=== PATIENT | male | born 1990 | race African-American/Black ===

== ENCOUNTER 2016-05-30 09:36 | Emergency (ER) | payer BC ==
[~2016-05-30] VITALS: Ht 175.3 cm; Wt 99.0 kg
[~2016-05-30 09:36] MED LIST: IBUP800T23 PO
[2016-05-30 09:38] VITALS: BP 139/86; PULSE 68; RESP 20; TEMP 97.8; O2SAT 99
[2016-05-30] MEDS ORDERED: SODIUM CHLORIDE 0.9% FLUSH 5 ML FLUSH IVF PRN (10:15)
[2016-05-30] MEDS ORDERED: ZOFR4TAB3 SL (11:40)
--- NOTE | 2016-05-30 11:40 | PD ---
HPI Chief Complaint: Abdominal Pain Time Seen by Provider: 09:56 Travel History International Travel<30 days: No Contact w/Intl Traveler<30days: No Traveled to known affect area: No History of Present Illness HPI This is a 26-year-old man who presents to the emergency room claiming of right upper quadrant abdominal pain that started yesterday. Been constant and worsening since that time. Associated with 2 episodes of nausea and vomiting. No diarrhea. No fevers or chills. No history of similar previous problems. Doesn't really have indigestion problems. He doesn't take NSAIDs. He drinks a little bit of alcohol. He was drinking a little bit of alcohol yesterday. No history of abdominal surgeries. States he came back and the pain was worse overnight. History Past Medical History Medical History: Denies Significant Hx Tetanus Vaccination: Never Vaccinated Influenza Vaccination: No Social History Alcohol Use: Yes (occ) Tobacco Use: No Allergies-Medications (Allergen,Severity, Reaction): Coded Allergies: No Known Allergies (Verified , 05/30/16) Reported Meds & Prescriptions Reported Meds & Active Scripts Active Review of Systems Except as stated in HPI: all other systems reviewed are Neg Physical Exam Narrative GENERAL: Well-appearing 18-year-old man, no acute distress. SKIN: Warm and dry. HEAD: Atraumatic. Normocephalic. EYES: Pupils equal and round. No scleral icterus. No injection or drainage. ENT: No nasal bleeding or discharge. Mucous membranes pink and moist. NECK: Trachea midline. No JVD. CARDIOVASCULAR: Regular rate and rhythm. No murmur appreciated. RESPIRATORY: No accessory muscle use. Clear to auscultation. Breath sounds equal bilaterally. GASTROINTESTINAL: Abdomen soft, moderate right mid abdominal tenderness. Minimal tenderness in the right upper quadrant. Minimal the right lower quadrant. MUSCULOSKELETAL: No obvious deformities. No edema. NEUROLOGICAL: Awake and alert. No obvious cranial nerve deficits. Motor grossly within normal limits. Normal speech. PSYCHIATRIC: Appropriate mood and affect; insight and judgment normal. Data Data Last Documented VS Vital Signs Date Time Temp Pulse Resp B/P Pulse Ox O2 Delivery O2 Flow Rate FiO2 05/30/16 09:38 97.8 68 20 139/86 99 Room Air Orders Complete Blood Count With Diff (05/30/16 10:09) Comprehensive Metabolic Panel (05/30/16 10:09) Lipase (05/30/16 10:09) Urinalysis - C+S If Indicated (05/30/16 10:09) Iv Access Insert/Monitor (05/30/16 10:09) NPO (05/30/16 10:09) Sodium Chloride 0.9% Flush (Ns Flush) (05/30/16 10:15) Ed Poc Ultrasound (05/30/16 10:09) Ct Abd/Pel W Iv Contrast(Rout) (05/30/16 ) [facility] Medical Decision Making Medical Screen Exam Complete: Yes Emergency Medical Condition: Yes Differential Diagnosis Cholecystitis, appendicitis, gastritis, indigestion, other Narrative Course Medical decision making the 26-year-old male with right sided abdominal pain associated nausea and vomiting ongoing for one day. Elsc-ol-[id number] tenderness in the right midabdomen. Plantar option was done. Normal-appearing gallbladder. No tenderness over the gallbladder. We ordered labs, and CT imaging to look for appendicitis. Patient refused to have blood work drawn, does not want have CT scan done. States he feels better at this time and would like to leave. He is agreeable takes a medicine for his stomach, and states he will return if his any worsening symptoms. Diagnosis Primary Impression: Abdominal pain Qualified Code: R10.9 - Abdominal pain, unspecified location Additional Instructions: Take Zofran if needed for nausea or vomiting. Follow-up with her primary doctor in 2-3 days. Return to the emergency department any worsening abdominal pain, fevers or chills, bloody diarrhea, or any other new or worsening symptoms. Med/Other Pt SpecificInfo: Prescription(s) given Scripts Ondansetron Odt (Zofran Odt)4 Mg Tab4 Mg SL Q8HR PRN (Nausea/Vomiting) #15 TAB May substitute non-ODT form. Prov:Wood Hartley MD 05/30/16 Disposition: 01 DISCHARGE HOME Condition: Stable Wood Hartley MD May 30, 2016 11:40
== END 2016-05-30 12:02 | disposition home or self-care (01) ==
LOC: NEPA 09:36
DX: R10.9 Unspecified abdominal pain (principal)

== ENCOUNTER 2017-02-15 09:45 | Emergency (ER) | payer BC ==
[~2017-02-15] VITALS: Ht 175.3 cm; Wt 104.5 kg
[~2017-02-15 09:45] MED LIST changes: -IBUP800T23 PO; +ZOFR4TAB3 SL
[2017-02-15 09:46] VITALS: BP 137/69; PULSE 52; RESP 14; TEMP 98.6; O2SAT 100
--- NOTE | 2017-02-15 10:16 | PD ---
HPI Chief Complaint: Back/ Neck Pain or Injury Time Seen by Provider: 10:06 Travel History International Travel<30 days: No Contact w/Intl Traveler<30days: No Traveled to known affect area: No History of Present Illness HPI 26-year-old Afro-[place] male presents to the emergency department with left upper lumbar lower thoracic pain status post slip and fall at a store yesterday. Patient states the pain is worse today approximately 8 out of 10 with stiffness and spasm. He denies numbness, tingling, or lower extremity involvement. He did not hit his head or have loss of consciousness. 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 He has no known drug allergies. [facility] Social History Alcohol Use: Yes ([facility]) Tobacco Use: No Substance Use: No Allergies-Medications (Allergen,Severity, Reaction): Coded Allergies: No Known Allergies (Verified , 05/30/16) Reported Meds & Prescriptions Reported Meds & Active Scripts Active Zofran Odt (Ondansetron Odt) 4 Mg Tab 4 Mg SL Q8HR PRN May substitute non-ODT form. Review of Systems Except as stated in HPI: all other systems reviewed are Neg General / Constitutional: No: Fever Eyes: No: Visual changes HENT: No: Headaches Cardiovascular: No: Chest Pain or Discomfort Respiratory: No: Shortness of Breath Gastrointestinal: No: Abdominal Pain Genitourinary: No: Dysuria Musculoskeletal: Positive: Myalgias, Limited ROM, Pain (see history of present illness) Skin: No Rash Neurologic: No: Weakness Psychiatric: No: Depression Endocrine: No: Polydipsia Hematologic/Lymphatic: No: Easy Bruising Physical Exam Narrative GENERAL: Patient appears in mild distress. SKIN: Warm and dry. Normal color. Normal turgor. No rash. HEAD: Atraumatic. Normocephalic. EYES: Pupils equal and round. No scleral icterus. No injection or drainage. ENT: No nasal bleeding or discharge. Mucous membranes pink and moist. Pharynx is clear. Airway is patent. NECK: Trachea midline. Supple and nontender. CARDIOVASCULAR: Regular rate and rhythm. RESPIRATORY: No accessory muscle use. Clear to auscultation. Breath sounds equal bilaterally. MUSCULOSKELETAL: Extremities without clubbing, cyanosis, or edema. No obvious deformities. Patient is soft tissue tenderness and spasm palpated along the right lower thoracic upper lumbar paraspinous muscles. There is no bony tenderness or deformity noted. Negative straight leg raise pain bilaterally in the lower extremities. NEUROLOGICAL: Awake and alert. No obvious cranial nerve deficits. Motor grossly within normal limits. Five out of 5 muscle strength in the arms and legs. Normal speech. PSYCHIATRIC: Appropriate mood and affect; insight and judgment normal. Data Data Last Documented VS Vital Signs Date Time Temp Pulse Resp B/P (MAP) Pulse Ox O2 Delivery O2 Flow Rate FiO2 02/15/17 09:46 98.6 52 14 137/69 (91) 100 Room Air MDM Medical Decision Making Medical Screen Exam Complete: Yes Emergency Medical Condition: Yes Differential Diagnosis Slip and fall. Thoracic strain. Lumbar strain. Muscle spasm. Narrative Course Radiographic imaging is not felt warranted based on the patient's history and physical. Patient was offered Toradol but refused as he does not like needles. Patient is treated with ibuprofen 800 mg 3 times daily with food #30. Patient also given acetaminophen 500 mg 2 tabs 3 times daily with food #60. Patient is given Flexeril 10 mg 3 times a day when necessary #15. Patient is to use heat, ice, and gentle stretching as discussed. Work note is given for today and tomorrow. Patient follow up if symptoms do not improve or worsen as needed. Diagnosis Primary Impression: Thoracic myofascial strain Qualified Codes: S29.019A - Strain of muscle and tendon of unspecified wall of thorax, initial encounter Additional Impression: Acute lumbar myofascial strain Qualified Codes: S39.012A - Strain of muscle, fascia and tendon of lower back , initial encounter Referrals: [facility] Patient Instructions: General Instructions, Low Back Strain (ED), Lower Back Exercises (ED), Thoracic Back Strain (ED), Upper Back Exercises (GEN) Departure Forms: Work Release Enter return to work date: Feb 17, 2017 Additional Instructions: Radiographic imaging is not felt warranted based on the patient's history and physical. Patient was offered Toradol but refused as he does not like needles. Patient is treated with ibuprofen 800 mg 3 times daily with food #30. Patient also given acetaminophen 500 mg 2 tabs 3 times daily with food #60. Patient is given Flexeril 10 mg 3 times a day when necessary #15. Patient is to use heat, ice, and gentle stretching as discussed. Work note is given for today and tomorrow. Patient follow up if symptoms do not improve or worsen as needed. Med/Other Pt SpecificInfo: Prescription(s) given Disposition: 01 DISCHARGE HOME Condition: Stable David Bee Feb 15, 2017 10:16
[2017-02-15] MEDS ORDERED: CYCL1TAB29 PO (10:18)
[2017-02-15] MEDS ORDERED: MAPA500T13 PO (10:18)
[2017-02-15] MEDS ORDERED: IBUP800T23 PO (10:18)
== END 2017-02-15 10:25 | disposition home or self-care (01) ==
LOC: NEPK 09:45
DX: S29.019A Strain of muscle and tendon of unspecified wall of thorax, initial encounter (principal); S39.012A Strain of muscle, fascia and tendon of lower back, initial encounter; W01.0XXA Fall on same level from slipping, tripping and stumbling without subsequent striking against object, initial encounter; Y92.512 Supermarket, store or market as the place of occurrence of the external cause; Z96.642 Presence of left artificial hip joint
CPT/HCPCS: 99283